=== PATIENT | male | born 1960 | race Caucasian/White ===

== ENCOUNTER 2016-09-21 06:21 | Emergency (ER) | payer MEDICARE ==
[~2016-09-21] VITALS: Ht 182.9 cm; Wt 105.2 kg
[~2016-09-21 06:21] MED LIST: AEROCHAMBER1 DEV IH; ALBUTEROL2 PUFFS/17 IN; BACTRIM DS 8001 TAB PO; CELEXA10 MG PO; CEPHALEXIN MON500 MG PO; FLEXERIL10 MG PO; GABAPENTIN300 MG PO; IBU800 MG PO; IBUPROFEN800 MG PO; MELOXICAM15 MG PO; NEURONTIN600 M1; NOMEDS; OXYCODONE SR 2020 MG PO; OXYCODONE15 MG PO; PERCOCET 5/3251 EACH PO; SEPTRA DS 800 M1 TAB PO; SULFAMETHOXAZOL1 TA6 PO; TYLENOL ES500 MG PO; TYLENOL W/CODEI1 TA2 PO; VALIUM10 MG OR; ZYPREXA10 MG PO
--- NOTE | 2016-09-21 07:00 | Emergency Room Report ---
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 N Clinical Suspician of Infection? N Mental Status: 1 - Regular (Normal Baseline) Sepsis Risk:Possible Sepsis Risk Have you (or family members/close friends) recently traveled outside the [place]? N If Yes, where/when: Have you had exposure to infectious disease within the past month? TB? Other? Specify: Source patient, RN notes reviewed, old records Exam Limitations no limitations Comment pt with hx of chronic pain and has hx of heroin and opiate use - pt reports no new sx and reports wants no opiates Cardiac Chest Pain Chest pain indicative of cardiac No Timing/Duration this evening Severity moderate ALLERGIES Coded Allergies: NO KNOWN ALLERGIES (05/10/13) Home Medications Active Scripts SULFAMETHOXAZOLE/TRIMETHOPRIM (Sulfamethoxazole-Tmp Ds Tablet) 1 TAB PO BID #14 TAB Prov: 05/10/13 Reported Medications Olanzapine (Zyprexa 10MG) 10 MG PO QHS Cyclobenzaprine Hcl (Flexeril) 5 MG PO TID Ibuprofen (Ibu) 800 MG PO TIDP Gabapentin (Gabapentin 300MG) 300 MG PO TID Acetaminophen (Tylenol XS 500MG) 1,000 MG PO Q6HP History Medical History General CAD? No Angina: Yes [place]: No Hypertension? No Hyperlipidemia? No CHF? No DVT? No PE? No COPD? No Asthma? No Anemia? No GERD? No Gastric ulcers? No GI Bleed? No Hernia? No Thyroid Problems? No Hypothyroidism? No CVA? No Seizures? No Diabetes? No Renal Insuffiency? No End Stage Renal Disease? No UTI? No Stones? No BPH? No GB Disease: No Nephritic Syndrome? No Asplenia? No Hepatitis? No Sickle Cell Disease? No Arthritis? No Migraines? No Cataracts? No Glaucoma? No MRSA? Yes HIV? No TB? No Anxiety? Yes Depression? Yes Cancer? No More? Yes Additional hx: BULGING DISC Immunization Hx DT/Tetanus 1-4 Years Ago Surgical Hx Previous Surgery?Y L EAR RIGHT SHOULDER Social History Smoking Hx Smoker: Current Some Day Smoker Tobacco: Yes Type Cigarettes Packs/day < 1 Pack Alcohol Alcohol: Yes Drugs none Review of Systems All Other Systems Reviewed and Negative Constitutional denies fever Eyes denies drainage ENT denies: ear pain, epistaxis, throat pain. Respiratory denies cough, denies shortness of breath, denies wheezing Cardiovascular denies chest pain, denies syncope Gastrointestinal denies abdominal pain, denies diarrhea, denies vomiting Genitourinary denies: dysuria, frequency, hesitancy, hematuria. Musculoskeletal back pain, joint pain, denies joint swelling, neck pain Skin denies rash Psychiatric/Neurological denies headache, denies seizure Physical Exam Vital Signs Vital Signs Date Time Temp Pulse Resp B/P Pulse O2 O2 Flow FiO2 Ox Delivery Rate 09/21 0626 97.9 107 20 159/96 98 - WBC >12,000 or <4,000 or 10% bands? 2 or more SIRS Criteria Met? B/P:159/96 MAP:117 Creatinine >2.0? UA output<0.5ml/kg/hr for 2 hrs? Platelet count >100,000? Lactate >2.0mmol/1? INR >1.2 or PTT > than 60 sec? Evidence of Organ Dysfunction? Provider documented clinical suspician of infection? N Sepsis Criteria Count: 2 Sepsis Risk: Possible Sepsis Risk General Appearance no apparent distress Eye Exam - bilateral eye PERRL, bilateral eye EOMI Ear, Nose, Throat normal ENT inspection Neck limited range of motion Respiratory Status No: respiratory distress. Lung Sounds bilateral: lungs clear. 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 No Departure Departure Time of Disposition 07 Disposition DC Home or Self Care(routine) Clinical Impression Primary Impression: Chronic pain disorder Condition STABLE Patient Instructions DI for Joint Pain Additional Instructions see pcp for follow up Discharge Counseling Counseled pt/family regarding diagnosis, follow up needs ED Critical Care Critical Care No at [id number]
[2016-09-21 07:22] VITALS: BP 159/96
[2016-10-24] MEDS ORDERED: KEFLEX500 M1 PO (23:43)
== END 2016-09-21 07:23 | disposition home or self-care (01) ==
LOC: ER 06:21
DX: G89.4 Chronic pain syndrome (principal); M54.5 Low back pain; F41.8 Other specified anxiety disorders

== ENCOUNTER 2017-07-11 02:03 | Emergency (ER) | payer MEDICARE ==
[~2017-07-11] VITALS: Ht 182.9 cm; Wt 95.3 kg
[~2017-07-11 02:03] MED LIST changes: +KEFLEX500 M1 PO
[2017-07-11 02:34] LABS: HEMOGLOBIN 14.3 g/dL (14.1-18.0); LYMPH % 21.2 % (10-50)
--- NOTE | 2017-07-11 03:39 | Emergency Room Report ---
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 UPON EMS ARRIVAL PATIENT WITH AGONAL BREATHING AND CYNAOTIC. FRIENDS GIVING CPR BUT HAD [PULSE. DENIES DRUG USE BUT TOOK TOTAL 4 MG NARCAN TO AROUSE PATIENT. 2 MG INTRANASALLY AND 2 MG IVP. 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 N Clinical Suspician of Infection? N Mental Status: 1 - Regular (Normal Baseline) Sepsis Risk:Possible Sepsis Risk Have you (or family members/close friends) recently traveled outside the [place]? N If Yes, where/when: Have you had exposure to infectious disease within the past month? N TB? Other? Specify: Source patient, RN notes reviewed, EMS, old records Exam Limitations no limitations Comment pt denied any heroin use but was agonal resp at scene and responded to narcan - no other hx avail- ems record was reviewed Cardiac Chest Pain Chest pain indicative of cardiac No Timing/Duration this evening Severity moderate ALLERGIES Coded Allergies: codeine (I-RASH 07/11/17) quetiapine (From SEROQUEL) (07/11/17) Home Medications Reported Medications Olanzapine (Zyprexa 10MG) 10 MG PO QHS History Medical History General CAD? No Angina: Yes [place]: No Hypertension? No Hyperlipidemia? No CHF? No DVT? No PE? No COPD? No Asthma? No Anemia? No GERD? No Gastric ulcers? No GI Bleed? No Hernia? No Thyroid Problems? No Hypothyroidism? No CVA? No Seizures? No Diabetes? No Renal Insuffiency? No End Stage Renal Disease? No UTI? No Stones? No BPH? No GB Disease: No Nephritic Syndrome? No Asplenia? No Hepatitis? No Sickle Cell Disease? No Arthritis? No Migraines? No Cataracts? No Glaucoma? No MRSA? Yes HIV? No TB? No Anxiety? Yes Depression? Yes Cancer? No More? Yes Additional hx: BULGING DISC HX DRUG ABUSE Immunization Hx DT/Tetanus 1-4 Years Ago Surgical Hx Previous Surgery?Y L EAR RIGHT SHOULDER Social History Smoking Hx Smoker: Current Every Day Smoker Tobacco: Yes Type Cigarettes Packs/day < 1 Pack Alcohol Alcohol: Yes Drugs none Review of Systems All Other Systems Reviewed and Negative Constitutional denies fever Eyes denies drainage ENT denies: nose pain, epistaxis, throat pain. Respiratory denies cough, denies shortness of breath, denies wheezing Cardiovascular denies chest pain, denies syncope Gastrointestinal denies abdominal pain, denies diarrhea, denies vomiting Genitourinary denies: dysuria, frequency, hesitancy, hematuria. Musculoskeletal denies back pain, denies joint pain, denies neck pain Skin denies rash Psychiatric/Neurological see HPI, denies headache, denies seizure, other Physical Exam Vital Signs Vital Signs Date Time Temp Pulse Resp B/P Pulse O2 O2 Flow FiO2 Ox Delivery Rate 07/11 0411 98.3 94 20 113/64 96 07/11 0332 104 20 127/81 96 07/11 0301 99 20 121/85 96 07/11 0223 98.3 103 20 132/93 96 07/11 0207 98.3 108 20 147/90 96 - WBC >12,000 or <4,000 or 10% bands? 2 or more SIRS Criteria Met? B/P:113/64 MAP:109 Creatinine >2.0? UA output<0.5ml/kg/hr for 2 hrs? Platelet count >100,000? Lactate >2.0mmol/1? INR >1.2 or PTT > than 60 sec? Evidence of Organ Dysfunction? Provider documented clinical suspician of infection? N Sepsis Criteria Count: 2 Sepsis Risk: Possible Sepsis Risk General Appearance no apparent distress Eye Exam - bilateral eye PERRL, bilateral eye EOMI Ear, Nose, Throat normal ENT inspection Neck supple Respiratory Status No: respiratory distress. Lung Sounds bilateral: lungs clear. 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 No Results/Orders Laboratory Tests 12/09/17 0224: Creatine Kinase 481 H, CK-MB (CK-2) Rel Index 3.3, CK and CKMB Interp 16.1 *H, Troponin I < 0.02 07/11/17223: Sodium 138, Potassium 3.6, Chloride 100, Carbon Dioxide 31, BUN 15, Creatinine 1.0, Estimated Creat Clear 112, Estimated GFR (MDRD) 78, Glucose 145 H, Calcium 9.8, Total Bilirubin 0.4, AST 44 H, ALT 55, Alkaline Phosphatase 77, Total Protein 6.9, Albumin 3.5, Globulin 3.4 H, Albumin/Globulin Ratio 1.0 L, WBC 9.5, RBC 4.87, Hgb 14.3, Hct 43.8, MCV 90.0, RDW 13.4, Plt Count 245, MPV 7.0 L , Gran % 72.9, Gran # 6.9, Lymphocytes % 21.2, Monocytes % 4.1, Eosinophils % 1.4, Basophils % 0.5, Lymphocytes # 2.0, Monocytes # 0.4, Eosinophils # 0.1, Basophils # 0.0, PUBS MCHC 32.7, MCH 29.4, Salicylates 0.9 L, Acetaminophen 0 L, Alcohols 9 Current Medication Orders Sig/Jose Guadalupe Start time Last Medication Dose Route Stop Time Status Admin Sodium Chloride 10 ML PRN PRN 07/11 230 AC IV 07/12 218 Orders Procedure Date/time Status 12 LEAD EKG-HERMINIA (INITIAL) 07/11 221 Active ELECTROCARDIOGRAM REQUEST 07/11 221 Active KIDS ACTIVITIES COACH 07/11 221 Active CARDIAC ENZYMES 07/11 221 Complete IV SALINE LOCK 07/11 218 Active URINALYSIS/COMPLETE 07/11 218 Active SALICYLATE 07/11 218 Complete DRUG ABUSE SCREEN (10) 07/11 218 Active CBC WITH AUTO DIFF 07/11 218 Complete CHEM 12 PROFILE 07/11 218 Complete ALCOHOL 07/11 218 Complete Acetaminophen 07/11 218 Complete CM/EKG 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 ST/Twave chgs Departure Departure Time of Disposition 0346 Disposition DC Home or Self Care(routine) Clinical Impression Primary Impression: Heroin poisoning of undetermined intent Qualifiers: Encounter type: initial encounter Qualified Code: T40.1X4A - Poisoning by heroin, undetermined, initial encounter Condition STABLE Referrals LYNNETTE LAIRD (Family) Patient Instructions DI for Drug Abuse and Drug Addiction Additional Instructions see pcp for follow up Discharge Counseling Counseled pt/family regarding diagnosis, test results, follow up needs ED Critical Care Critical Care No at [id number]
--- NOTE | 2017-07-11 03:39 | Emergency Room Report ---
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 UPON EMS ARRIVAL PATIENT WITH AGONAL BREATHING AND CYNAOTIC. FRIENDS GIVING CPR BUT HAD [PULSE. DENIES DRUG USE BUT TOOK TOTAL 4 MG NARCAN TO AROUSE PATIENT. 2 MG INTRANASALLY AND 2 MG IVP. 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 N Clinical Suspician of Infection? N Mental Status: 1 - Regular (Normal Baseline) Sepsis Risk:Possible Sepsis Risk Have you (or family members/close friends) recently traveled outside the [place]? N If Yes, where/when: Have you had exposure to infectious disease within the past month? N TB? Other? Specify: Source patient, RN notes reviewed, EMS, old records Exam Limitations no limitations Comment pt denied any heroin use but was agonal resp at scene and responded to narcan - no other hx avail- ems record was reviewed Cardiac Chest Pain Chest pain indicative of cardiac No Timing/Duration this evening Severity moderate ALLERGIES Coded Allergies: codeine (I-RASH 07/11/17) quetiapine (From SEROQUEL) (07/11/17) Home Medications Reported Medications Olanzapine (Zyprexa 10MG) 10 MG PO QHS History Medical History General CAD? No Angina: Yes [place]: No Hypertension? No Hyperlipidemia? No CHF? No DVT? No PE? No COPD? No Asthma? No Anemia? No GERD? No Gastric ulcers? No GI Bleed? No Hernia? No Thyroid Problems? No Hypothyroidism? No CVA? No Seizures? No Diabetes? No Renal Insuffiency? No End Stage Renal Disease? No UTI? No Stones? No BPH? No GB Disease: No Nephritic Syndrome? No Asplenia? No Hepatitis? No Sickle Cell Disease? No Arthritis? No Migraines? No Cataracts? No Glaucoma? No MRSA? Yes HIV? No TB? No Anxiety? Yes Depression? Yes Cancer? No More? Yes Additional hx: BULGING DISC HX DRUG ABUSE Immunization Hx DT/Tetanus 1-4 Years Ago Surgical Hx Previous Surgery?Y L EAR RIGHT SHOULDER Social History Smoking Hx Smoker: Current Every Day Smoker Tobacco: Yes Type Cigarettes Packs/day < 1 Pack Alcohol Alcohol: Yes Drugs none Review of Systems All Other Systems Reviewed and Negative Constitutional denies fever Eyes denies drainage ENT denies: nose pain, epistaxis, throat pain. Respiratory denies cough, denies shortness of breath, denies wheezing Cardiovascular denies chest pain, denies syncope Gastrointestinal denies abdominal pain, denies diarrhea, denies vomiting Genitourinary denies: dysuria, frequency, hesitancy, hematuria. Musculoskeletal denies back pain, denies joint pain, denies neck pain Skin denies rash Psychiatric/Neurological see HPI, denies headache, denies seizure, other Physical Exam Vital Signs Vital Signs Date Time Temp Pulse Resp B/P Pulse O2 O2 Flow FiO2 Ox Delivery Rate 07/11 0411 98.3 94 20 113/64 96 07/11 0332 104 20 127/81 96 07/11 0301 99 20 121/85 96 07/11 0223 98.3 103 20 132/93 96 07/11 0207 98.3 108 20 147/90 96 - WBC >12,000 or <4,000 or 10% bands? 2 or more SIRS Criteria Met? B/P:113/64 MAP:109 Creatinine >2.0? UA output<0.5ml/kg/hr for 2 hrs? Platelet count >100,000? Lactate >2.0mmol/1? INR >1.2 or PTT > than 60 sec? Evidence of Organ Dysfunction? Provider documented clinical suspician of infection? N Sepsis Criteria Count: 2 Sepsis Risk: Possible Sepsis Risk General Appearance no apparent distress Eye Exam - bilateral eye PERRL, bilateral eye EOMI Ear, Nose, Throat normal ENT inspection Neck supple Respiratory Status No: respiratory distress. Lung Sounds bilateral: lungs clear. 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 No Results/Orders Laboratory Tests 12/09/17 0224: Creatine Kinase 481 H, CK-MB (CK-2) Rel Index 3.3, CK and CKMB Interp 16.1 *H, Troponin I < 0.02 07/11/17223: Sodium 138, Potassium 3.6, Chloride 100, Carbon Dioxide 31, BUN 15, Creatinine 1.0, Estimated Creat Clear 112, Estimated GFR (MDRD) 78, Glucose 145 H, Calcium 9.8, Total Bilirubin 0.4, AST 44 H, ALT 55, Alkaline Phosphatase 77, Total Protein 6.9, Albumin 3.5, Globulin 3.4 H, Albumin/Globulin Ratio 1.0 L, WBC 9.5, RBC 4.87, Hgb 14.3, Hct 43.8, MCV 90.0, RDW 13.4, Plt Count 245, MPV 7.0 L , Gran % 72.9, Gran # 6.9, Lymphocytes % 21.2, Monocytes % 4.1, Eosinophils % 1.4, Basophils % 0.5, Lymphocytes # 2.0, Monocytes # 0.4, Eosinophils # 0.1, Basophils # 0.0, PUBS MCHC 32.7, MCH 29.4, Salicylates 0.9 L, Acetaminophen 0 L, Alcohols 9 Current Medication Orders Sig/Jose Guadalupe Start time Last Medication Dose Route Stop Time Status Admin Sodium Chloride 10 ML PRN PRN 07/11 230 AC IV 07/12 218 Orders Procedure Date/time Status 12 LEAD EKG-HERMINIA (INITIAL) 07/11 221 Active ELECTROCARDIOGRAM REQUEST 07/11 221 Active DOWEL PIN WORKER 07/11 221 Active CARDIAC ENZYMES 07/11 221 Complete IV SALINE LOCK 07/11 218 Active URINALYSIS/COMPLETE 07/11 218 Active SALICYLATE 07/11 218 Complete DRUG ABUSE SCREEN (10) 07/11 218 Active CBC WITH AUTO DIFF 07/11 218 Complete CHEM 12 PROFILE 07/11 218 Complete ALCOHOL 07/11 218 Complete Acetaminophen 07/11 218 Complete CM/EKG CM/card maker Rhythm Sinus Tachycardia EKG non-spec. ST/Twave chgs Departure Departure Time of Disposition 0346 Disposition DC Home or Self Care(routine) Clinical Impression Primary Impression: Heroin poisoning of undetermined intent Qualifiers: Encounter type: initial encounter Qualified Code: T40.1X4A - Poisoning by heroin, undetermined, initial encounter Condition STABLE Referrals LYNNETTE LAIRD (Family) Patient Instructions DI for Drug Abuse and Drug Addiction Additional Instructions see pcp for follow up Discharge Counseling Counseled pt/family regarding diagnosis, test results, follow up needs ED Critical Care Critical Care No at [id number]
[2017-07-11 05:35] VITALS: BP 134/95
== END 2017-07-11 05:36 | disposition home or self-care (01) ==
LOC: ER 02:03
PROVIDERS: Emergency Medicine
DX: T40.1X4A Poisoning by heroin, undetermined, initial encounter (principal); F17.210 Nicotine dependence, cigarettes, uncomplicated; F41.8 Other specified anxiety disorders; Z88.6 Allergy status to analgesic agent; Z79.899 Other long term (current) drug therapy